=== PATIENT | female | born 1935 | race Caucasian/White ===

== ENCOUNTER 2016-07-11 16:38 | Emergency (ER) | payer BC ==
[~2016-07-11] VITALS: Ht 152.4 cm; Wt 59.0 kg
[~2016-07-11 16:38] MED LIST: ALBU8.5H3 INH; BECL8.7A5 INH; LEVO250T9 PO; LOSA100T7 PO; MONT10TA24 PO
[2016-07-11 16:41] VITALS: Ht 152.4 cm; Wt 59.0 kg
[2016-07-11] MEDS ORDERED: ALBUTEROL 0.083% (NEB) 2.5 MG/3 ML AMP HHN STA (17:16)
--- NOTE | 2016-07-11 17:21 | ERA ---
ER Documentation Chief Complaint Date/Time DATE: 07/11/16 TIME: 17:19 Chief Complaint pt bib family with c/o cough and "wheezing for a few days" HPI This 80-year-old female presents with wheezing for several days. She is having increasing shortness of breath. She also says that she has substernal chest pain that is nonradiating and described as a aching pain exacerbated by coughing. Denies fevers and chills. She has a history of asthma and is currently out of albuterol inhalers and her doctor was unable to approve her Qvar recently so she has not been treated for several days as well. ROS All systems reviewed and are negative except as per history of present illness. Medications Home Meds Active Scripts Prednisone* (Prednisone*) 20 Mg Tab, 40 MG PO DAILY for 3 Days, TAB Prov:FERCHO BANDA 07/11/16 Budesonide* (Pulmicort*) 1 Mg/2 Ml Ampul.neb, 1 MG INHALATION BID, #60 AMP If cannot get QVAR Prov:FERCHO BANDA 07/11/16 Beclomethasone Dip* (Qvar 40*) 7.3 Gm Inha, 1 PUFF INH BID, #1 INHALER Prov:FERCHO BANDA 07/11/16 Albuterol Sulfate* (Albuterol Sulfate* Neb) 0.083%-3 Ml Neb, 2.5 MG NEB Q3H Y for WHEEZING AND SOB, #30 VIAL Prov:FERCHO BANDA 07/11/16 Levofloxacin* (Levaquin*) 500 Mg Tablet, 500 MG PO DAILY for 7 Days, TAB Prov:PHAM BANDAUA DO 07/11/16 Reported Medications Donepezil* (Aricept*) 10 Mg Tablet, 10 MG PO QHS, TAB 07/11/16 Quetiapine Fumarate* (Seroquel*) 25 Mg Tablet, 50 MG PO HS, #30 TAB 07/11/16 Risperidone* (Risperdal*) 0.5 Mg Tablet, 0.5 MG PO DAILY, TAB 07/11/16 Albuterol Sulfate* (Proair HFA*) 8.5 Gm Hfa.aer.ad, 90 MCG INH EVERY 6 HRS PRN 03/25/12 Beclomethasone Dip* (Qvar 80*) 7.3 Gm Inha, INH BID 2/9/13 Discontinued Reported Medications Montelukast Sodium* (Montelukast Sodium*) 10 Mg Tablet, 10 MG PO QHS, #30 TAB 08/07/15 Losartan Potassium* (Losartan Potassium*) 100 Mg Tablet, 100 MG PO DAILY, TAB 08/07/15 Discontinued Scripts Levofloxacin* (Levofloxacin*) 250 Mg Tablet, 250 MG PO DAILY@06 for 3 Days, TAB Prov:KAITLIN LAIRD F 08/08/15 Allergies Allergies: Uncoded Allergies: FISH (Allergy, Severe, HIVES, SOB, 03/25/12) PMhx/Soc History of Surgery: Yes (cholecystectomy) Anesthesia Reaction: Yes (2014) Hx Neurological Disorder: No Hx Respiratory Disorders: Yes (ASTHMA) Hx Cardiac Disorders: Yes (HTN) Hx Psychiatric Problems: No Hx Miscellaneous Medical Probl: Yes (Htn, UTI) Hx Alcohol Use: No Hx Substance Use: No Hx Tobacco Use: No Physical Exam Vitals Vital Signs Date Time Temp Pulse Resp B/P Pulse Ox O2 Delivery O2 Flow Rate FiO2 07/11/16 21:13 98.3 112 18 133/69 94 Room Air 07/11/16 17:31 80 20 95 21 07/11/16 17:23 98.2 98 22 157/85 99 Room Air 07/11/16 16:41 100.2 108 22 153/85 95 Physical Exam Const: [] Mild distress, coughing Head: Atraumatic Eyes: Normal Conjunctiva ENT: Normal External Ears, Nose and Mouth. Neck: Full range of motion..~ No meningismus. Resp: Bilateral anterior wheezing, tachypnea,, no accessory muscle use, coughing on exam Cardio: Regular rate and rhythm, no murmurs Abd: Soft, non tender, non distended. Normal bowel sounds Skin: No petechiae or rashes Back: No midline or flank tenderness Ext: No cyanosis, or edema Neur: Awake and alert and oriented 3, no focal deficits Psych: Normal Mood and Affect Result Diagram: 07/11/16 1720 07/11/16 1720 Results 24 hrs Laboratory Tests Test 07/11/16 17:20 White Blood Count 8.110^3/ul Red Blood Count 4.1110^6/ul Hemoglobin 12.5g/dl Hematocrit 35.7% Mean Corpuscular Volume 86.9fl Mean Corpuscular Hemoglobin 30.4pg Mean Corpuscular Hemoglobin Concent 35.0g/dl Red Cell Distribution Width 12.4% Platelet Count 14707^3/UL Mean Platelet Volume 8.4fl Neutrophils % 66.6% Lymphocytes % 18.0% Monocytes % 13.3% Eosinophils % 1.2% Basophils % 0.4% Nucleated Red Blood Cells % 0.0/100WBC Neutrophils # 5.410^3/ul Lymphocytes # 1.510^3/ul Monocytes # 1.110^3/ul Eosinophils # 0.110^3/ul Basophils # 0.010^3/ul Nucleated Red Blood Cells # 0.010^3/ul Prothrombin Time 12.7Sec Prothrombin Time Ratio 1.0 INR International Normalized Ratio 0.95 Activated Partial Thromboplast Time 25.1Sec Sodium Level 138mmol/L Potassium Level 4.4mmol/L Chloride Level 101mmol/L Carbon Dioxide Level 25mmol/L Anion Gap 16 Blood Urea Nitrogen 19mg/dl Creatinine 0.71mg/dl Glucose Level 100mg/dl Calcium Level 8.6mg/dl Troponin I < 0.012ng/ml B-Type Natriuretic Peptide 180PG/ML Current Medications Medications (Trade) Dose Ordered Sig/Pili Route PRN Reason Start Time Stop Time Status Last Admin Dose Admin Albuterol (Proventil 0.083% (Neb)) 10 mg ONCE STAT HHN 07/11/16 17:16 07/11/16 17:19 DC 07/11/16 17:30 Ipratropium [place] (Atrovent 0.02% (Neb)) 1 mg ONCE ONCE HHN 07/11/16 17:30 07/11/16 17:31 DC 07/11/16 17:30 Methylprednisolone Sodium Succinate 125 mg 125 mg ONCE ONCE IV 07/11/16 17:30 07/11/16 17:31 DC 07/11/16 17:25 Ceftriaxone Sodium (Rocephin) 50 ml @ 100 mls/hr ONCE ONCE IVPB 07/11/16 21:00 07/11/16 21:29 UNV Azithromycin (Zithromax) 500 mg ONCE ONCE PO 07/11/16 21:00 07/11/16 21:01 DC 07/11/16 21:05 Procedures/MDM 80-year-old female with pneumonia and asthma exacerbation. She was given 10 mg of albuterol and 1 mg Atrovent emergency room which completely resolved her wheezing and made her feel as though she was not short of breath anymore. Believe much of the shortness of breath was simply secondary to not having medications for her reactive airway disease. She does have a right-sided pneumonia on her chest x-ray. She has no signs of sepsis no elevated white count and she feels well. Both patient and daughter agree that they do not want to stay in the hospital. For this reason I have gave 1 g of Rocephin in the emergency room as well as azithromycin. I am going to discharge her with Levaquin for 7 days. I am also giving refills of albuterol. They requested a prescription for Qvar as well as a substitute if they cannot fill that. I am providing a Pulmicort prescription in the event they are not able to fill that. I am also giving prednisone 40 mg for 3 more days. Patient was given Solu- Medrol in the emergency room. No signs of cardiac ischemia and I have very low suspicion for an acute coronary syndrome as the patient did not have chest pain. EKG interpretation: Normal sinus rhythm rate of 79, normal axis, normal intervals, no ST or T-wave changes concerning for acute ischemia, normal EKG. satellite project site monitor interpretation: Normal sinus rhythm without arrhythmia Chest x-ray interpretation: Right lower lobe consolidation was not present on any previous chest x-rays, no pneumothorax, no widened mediastinum, no fractures. Right-sided pneumonia. Departure Diagnosis: Primary Impression: Pneumonia Additional Impression: Asthma exacerbation Condition: FERCHO Miranda DO July 11, 2016 17:21
[2016-07-11] MEDS ORDERED: METHYLPREDNISOLONE 125 MG INJ IV ONE (17:30)
[2016-07-11] MEDS ORDERED: IPRATROPIUM (NEB) 0.5 MG/2.5 ML AMP HHN ONE (17:30)
[2016-07-11 17:34] LABS: ADD SCAN DIFF NO
[2016-07-11] MEDS ORDERED: RISP0.5T21 PO (17:44)
[2016-07-11] MEDS ORDERED: QUET25TA26 PO (17:45)
[2016-07-11] MEDS ORDERED: DONE10TA7 PO (17:45)
[2016-07-11 17:47] LABS: INR 0.95; PROTIME 12.7 Sec (12.2-14.2)
[2016-07-11 17:48] LABS: PARTIAL THROMBOPLASTIN TIME 25.1 Sec (25.0-35.0)
[2016-07-11 17:50] LABS: BASOPHILS % 0.4 % (0.0-2.0); EOSINOPHILS # 0.1 10^3/ul (0.0-0.5); EOSINOPHILS % 1.2 % (0.0-7.0); HEMATOCRIT 35.7 % (37.0-47.0); HEMOGLOBIN 12.5 g/dl (12.0-16.0); LYMPHOCYTES # 1.5 10^3/ul (0.8-2.9); MEAN CORPUSCULAR HEMOGLOBIN 30.4 pg (29.0-33.0); MEAN CORPUSCULAR VOLUME 86.9 fl (82.0-101.0); MEAN PLATELET VOLUME 8.4 fl (7.4-10.4); MONOCYTE # 1.1 10^3/ul (0.3-0.9); MONOCYTES % 13.3 % (0.0-11.0); NEUTROPHIL # 5.4 10^3/ul (1.6-7.5); NEUTROPHILS % 66.6 % (39.0-77.0); PLATELET COUNT 374 10^3/UL (140-415); RED BLOOD COUNT 4.11 10^6/ul (4.20-5.40); RED CELL DISTRIBUTION WIDTH 12.4 % (11.5-14.5); WHITE BLOOD COUNT 8.1 10^3/ul (4.8-10.8)
[2016-07-11 17:57] LABS: ANION GAP 16 (8-16); BLOOD UREA NITROGEN 19 mg/dl (7-20); CALCIUM 8.6 mg/dl (8.4-10.2); CARBON DIOXIDE 25 mmol/L (21-31); CHLORIDE 101 mmol/L (97-110); CREATININE 0.71 mg/dl (0.44-1.00); GLUCOSE 100 mg/dl (70-220); POTASSIUM 4.4 mmol/L (3.5-5.1); SODIUM 138 mmol/L (135-144)
[2016-07-11 18:07] LABS: B-TYPE NATRIURETIC PEPTIDE 180 PG/ML (0-450)
[2016-07-11 18:09] LABS: TROPONIN-I < 0.012 ng/ml (0.00-0.12)
--- NOTE | 2016-07-11 18:31 | RADRPT ---
PROCEDURE: XR Chest. CLINICAL INDICATION: Chest pain TECHNIQUE: Chest AP portable COMPARISON: 08/07/2015 FINDINGS: The mediastinal structures are unremarkable. There is calcification of the thoracic aorta (consiste nt with atherosclerosis). The heart is normal in size and configuration. The pulmonary vascularity is normal. There are normal lung volumes. There is a RUL patchy consolidation. There is bibasila r subsegmental atelectasis. The pleural spaces are unremarkable. There are senescent changes of th e axial skeleton. IMPRESSION: Calcification of the thoracic aorta (consistent with atherosclerosis). RUL patchy consolidation Bibasilar subsegmental atelectasis RPTAT: [facility] .Sukhdeep Disla MD, Date Time Electronically viewed and signed by .Sukhdeep Disla MD, on 07/11/2016 18:31 .B/
[2016-07-11] MEDS ORDERED: CEFTRIAXONE 1 GM/50 ML (PMX) 50 ML IVPB ONE (21:00)
[2016-07-11] MEDS ORDERED: AZITHROMYCIN 250 MG TAB PO ONE (21:00)
[2016-07-11 21:13] VITALS: TEMP 98.3
[2016-07-11] MEDS ORDERED: LEVO500T72 PO (22:16)
[2016-07-11] MEDS ORDERED: ALBU2.5V3 NEB (22:16)
[2016-07-11] MEDS ORDERED: BECL8.7A INH (22:16)
[2016-07-11] MEDS ORDERED: BUDE1AMP INHALATION (22:16)
[2016-07-11] MEDS ORDERED: PRED20TA PO (22:18)
[2016-07-11 22:48] VITALS: BP 143/73; PULSE 109; RESP 23
== END 2016-07-11 22:45 | disposition home or self-care (01) ==
LOC: E/R 16:38
DX: J18.9 Pneumonia, unspecified organism (principal); R40.2252 Coma scale, best verbal response, oriented, at arrival to emergency department; J45.901 Unspecified asthma with (acute) exacerbation; I10 Essential (primary) hypertension; R40.2362 Coma scale, best motor response, obeys commands, at arrival to emergency department; R40.2142 Coma scale, eyes open, spontaneous, at arrival to emergency department; R07.9 Chest pain, unspecified
CPT/HCPCS: 36415; 71010; 80048; 83880; 84484; 85025; 85610; 85730; 93005; 94644; 96365; 96375; 99285; J0696; J2930; Z7610

== ENCOUNTER 2017-03-06 09:42 | Emergency (ER) | END 2017-03-06 12:22 | disposition home or self-care (01) ==